=== PATIENT | female | born 1970 | race Caucasian/White ===

== ENCOUNTER → 2016-05-02 | Outpatient (CLI) | payer OTHER ==
--- NOTE | 2016-05-02 16:45 | US ---
EXAMINATION TYPE: US transvaginal DATE OF EXAM: 05/02/2016 4:32 PM COMPARISON: No previous CLINICAL HISTORY: M92.1 Metrorrhagia. Painful, irregular periods with heavy bleeding x 4 months, grav oleg 4, para 4, history of tubal ligation TECHNIQUE: Transvaginal (TV) only - per Dr. Schulte Date of LMP: 04/09/16 EXAM MEASUREMENTS: Uterus: 9.3 x 4.7 x 5.4 cm Endometrial Stripe: right 1.1cm, left 1.2cm Right Ovary: not seen cm Left Ovary: not seen cm TECHNOLOGIST IMPRESSION: 1. Uterus: Anteverted, possible bicornuate uterus 2. Endometrium: appears to split within fundal portion of uterus with right endometrial stripe measu ring 1.1cm and left endometrial stripe measuring 1.2cm, both measuring wnl for patient's menstrual cy darwin 3. Right Ovary: not seen due to overlying bowel gas 4. Left Ovary: not seen due to overlying bowel gas 5. Bilateral Adnexa: wnl 6. Posterior cul-de-sac: wnl IMPRESSION: NORMAL PELVIC ULTRASOUND. I COULD NOT EXCLUDE A BICORNUATE UTERUS.
== END | disposition home or self-care (01) ==
LOC: RADUSWWP 16:07
PROVIDERS: ATTEND Obstetrics & Gynecology
DX: N92.1 Excessive and frequent menstruation with irregular cycle (principal)
CPT/HCPCS: 76830

== ENCOUNTER 2018-05-27 19:29 | Emergency (ER) | payer OTHER ==
[2018-05-27] MEDS ORDERED: SODIUM CHLORIDE 0.9% 1,000 ML IV STA (20:47)
[2018-05-27] MEDS ORDERED: KETOROLAC 30 MG/ML 1 ML VIAL IVP STA (20:47)
--- NOTE | 2018-05-27 21:05 | XR ---
EXAMINATION TYPE: XR KUB DATE OF EXAM: 05/27/2018 COMPARISON: NONE HISTORY: Abdominal pain TECHNIQUE: 2 views FINDINGS: Bowel gas pattern is normal. There is no sign of intestinal obstruction or pneumoperitoneum . Fecal pattern is normal. There are no pathologic calcifications. Lung bases are clear. IMPRESSION: Nonacute abdomen.
[2018-05-27 21:06] LABS: Basophils % (A) 0 %; Eosinophils # (A) 0.2 k/uL (0-0.7); Eosinophils % (A) 1 %; HCT 41.9 % (34.0-46.0); HGB 13.9 gm/dL (11.4-16.0); Lymphocytes # (A) 2.3 k/uL (1.0-4.8); Lymphocytes % (A) 18 %; MCH 29.8 pg (25.0-35.0); MCHC 33.1 g/dL (31.0-37.0); MCV 90.2 fL (80.0-100.0); Monocytes # (A) 0.8 k/uL (0-1.0); Monocytes % (A) 6 %; Neutrophils # (A) 9.2 k/uL (1.3-7.7); Neutrophils % (A) 73 %; Platelet Count 380 k/uL (150-450); RBC 4.64 m/uL (3.80-5.40); RDW 13.1 % (11.5-15.5); WBC 12.6 k/uL (3.8-10.6)
[2018-05-27 21:13] LABS: ALT 25 U/L (9-52); AST 25 U/L (14-36); Albumin 4.2 g/dL (3.5-5.0); Alkaline Phosphatase 68 U/L (38-126); Anion Gap 8 mmol/L; Blood Urea Nitrogen 14 mg/dL (7-17); Calcium 9.6 mg/dL (8.4-10.2); Carbon Dioxide 29 mmol/L (22-30); Chloride 103 mmol/L (98-107); Glucose 97 mg/dL (74-99); Lipase 114 U/L (23-300); Potassium 4.9 mmol/L (3.5-5.1); Sodium 140 mmol/L (137-145); Total Bilirubin 0.4 mg/dL (0.2-1.3); Total Protein 7.1 g/dL (6.3-8.2)
[2018-05-27 22:16] LABS: Appearance,Urine Clear (Clear); Bilirubin,Urine Negative (Negative); Blood,Urine Negative (Negative); Color,Urine Yellow; Glucose,Urine (UA) Negative (Negative); Ketones,Urine Negative (Negative); Leukocyte Esterase,Urine Negative (Negative); Nitrite,Urine Negative (Negative); PH, Urine 6.5 (5.0-8.0); Protein,Urine Trace (Negative); Specific Gravity,Urine 1.018 (1.001-1.035); Urobilinogen,Urine <2.0 mg/dL (<2.0)
--- NOTE | 2018-05-27 22:22 | ED ---
General Adult HPI - General Chief complaint: Abdominal Pain Stated complaint: Abd pain Time Seen by Provider: 05/27/18 20:33 Source: patient, RN notes reviewed, old records reviewed Mode of arrival: wheelchair Limitations: no limitations - History of Present Illness Initial comments: 47-year-old female patient past medical history of hysterectomy presents to ED with approximately epigastric pain for 3 days. Patient reports that yesterday she experienced some substernal burning which resolved. Patient denies any substernall burning or any chest pain today. Patient denies any shortness of breath.. Patient denies any nausea vomiting or diarrhea. She denies all other complaints. Systemic: Pt denies fatigue, myalgia, fever/chills, rash. Pt denies weakness, night sweats, weight loss. Neuro: Pt denies headache, visual disturbances, syncope or pre-syncope. HEENT: Pt denies ocular discharge or irritation, otalgia, rhinorrhea, pharyng itis or notable lymphadenopathy. Cardiopulmonary: Pt denies chest pain, SOB, heart palpitations, dyspnea on exertion. Abdominal/GI: Pt denies n/v/d. : Pt denies dysuria, burning w/ urination, frequency/urgency. Denies new onset urinary or bowel incontinence. MSK: Pt denies myalgia, loss of strength or function in extremities. Neuro: Pt denies new onset weakness, paresthesias. - Related Data Home Medications Medication Instructions Recorded Confirmed Ibuprofen [Motrin] 800 mg PO TID PRN 05/27/18 05/27/18 Levothyroxine Sodium [Synthroid] 75 mcg PO DAILY 05/27/18 05/27/18 Loratadine [Claritin] 10 mg PO DAILY 05/27/18 05/27/18 Multivitamins, Thera [Multivitamin 1 tab PO DAILY 05/27/18 05/27/18 (formulary)] Sertraline [Zoloft] 50 mg PO DAILY 05/27/18 05/27/18 Triamcinolone 0.025% Cream 1 applic TOPICAL DAILY PRN 05/27/18 05/27/18 [Kenalog 0.025% Cream] Vortioxetine Hydrobromide 20 mg PO HS 05/27/18 05/27/18 [Trintellix] Allergies Allergy/AdvReac Type Severity Reaction Status Date / Time codeine Allergy Anaphylaxis Verified 05/27/18 20:31 morphine Allergy Rash/Hives Verified 05/27/18 20:31 Review of Systems ROS Statement: Those systems with pertinent positive or pertinent negative responses have been documented in the HPI. ROS Other: All systems not noted in ROS Statement are negative. Past Medical History Past Medical History: Seizure Disorder History of Any Multi-Drug Resistant Organisms: None Reported Past Surgical History: Adenoidectomy, Hysterectomy, Tonsillectomy, Tubal Ligation Past Psychological History: No Psychological Hx Reported, Depression Smoking Status: Current every day smoker Past Alcohol Use History: None Reported Past Drug Use History: None Reported General Exam - General Exam Comments Initial Comments: Constitutional: NAD, AOX3, Pt has pleasant affect. HEENT: NC/AT, trachea midline, neck supple, no lymphadenopathy. Posterior pharynx non erythematous, without exudates. External ears appear normal, without discharge. Mucous membranes moist. Eyes PERRLA, EOM intact. There is no scleral icterus. No pallor noted. Cardiopulmonary: RRR, no murmurs, rubs or gallops, no JVD noted. Lungs CTAB in anterior and posterior woods. No peripheral edema. Abdominal exam: Abdomen soft and non-distended. Epigastric region mildly tender to palpation. No right upper quadrant tenderness, Fried sign negative. No ot her areas abdominal tenderness. No guarding or rigidity. Bowel sounds active in LLQ. No hepatosplenomegaly. No ecchymosis Neuro: CN II-XII grossly intact. No nuchal rigidity. MSK: No posterior calf tenderness bilaterally, homans sign negative bilaterally. Posterior tibialis and radial pulse +2 bilaterally. Sensation intact in upper and lower extremities. Full active ROM in upper and lower extremities, 5/5 stregnth. Limitations: no limitations Course Vital Signs 05/27/18 05/27/18 20:03 22:27 Temperature 98.1 F 97 F L Pulse Rate 92 72 Respiratory 18 16 Rate Blood Pressure 119/87 132/70 O2 Sat by Pulse 97 98 Oximetry Medical Decision Making - Medical Decision Making 47-year-old female patient past medical history of hysterectomy presents to ED with approximately epigastric pain for 3 days. Patient reports that yesterday she experienced some substernal burning which resolved. Patient denies any substernall burning or any chest pain today. Patient denies any shortness of breath.. Patient denies any nausea vomiting or diarrhea. She denies all other complaints. Pt VSS, afebrile. Physical exam displayed: Epigastric region m ildly tender to palpation. No right upper quadrant tenderness, Fried sign negative. No other areas abdominal tenderness. No guarding or rigidity. Bowel sounds active in LLQ. No hepatosplenomegaly. No ecchymosis. Laboratory Investigations revealed mild leukocytosis of 12.6. CMP noncompressive. Troponin negative. Lactic acid within normal limits. Lipase within normal limits. UA negative. KUB did not display any acute process. EKG not concerning for acute ischemia. Patient improved without fluids. Repeat abdominal exam displayed decreased abdominal tenderness. Patient to be discharged with close outpatient follow-up with primary care provider. Patient return to ER if descends symptoms develop and worsens anyway. Case discussed with Dr. Marcial. - Lab Data Result diagrams: 05/27/18 20:35 05/27/18 20:35 Lab Results 05/27/18 05/27/18 05/27/18 Range/Units 20:35 20:35 20:35 WBC 12.6 H (3.8-10.6) k/uL RBC 4.64 (3.80-5.40) m/uL Hgb 13.9 (11.4-16.0) gm/dL Hct 41.9 (34.0-46.0) % MCV 90.2 (80.0-100.0) fL MCH 29.8 (25.0-35.0) pg MCHC 33.1 (31.0-37.0) g/dL RDW 13.1 (11.5-15.5) % Plt Count 380 (150-450) k/uL Neutrophils % 73 % Lymphocytes % 18 % Monocytes % 6 % Eosinophils % 1 % Basophils % 0 % Neutrophils # 9.2 H (1.3-7.7) k/uL Lymphocytes # 2.3 (1.0-4.8) k/uL Monocytes # 0.8 (0-1.0) k/uL Eosinophils # 0.2 (0-0.7) k/uL Basophils # 0.0 (0-0.2) k/uL Sodium 140 (137-145) mmol/L Potassium 4.9 (3.5-5.1) mmol/L Chloride 103 (98-107) mmol/L Carbon Dioxide 29 (22-30) mmol/L Anion Gap 8 mmol/L BUN 14 (7-17) mg/dL Creatinine 0.65 (0.52-1.04) mg/dL Est GFR (CKD-EPI)AfAm >90 (>60 ml/min/1.73 sqM) Est GFR (CKD-EPI)NonAf >90 (>60 ml/min/1.73 sqM) Glucose 97 (74-99) mg/dL Plasma Lactic Acid Jonh 1.2 (0.7-2.0) mmol/L Calcium 9.6 (8.4-10.2) mg/dL Total Bilirubin 0.4 (0.2-1.3) mg/dL AST 25 (14-36) U/L ALT 25 (9-52) U/L Alkaline Phosphatase 68 (38-126) U/L Troponin I (0.000-0.034) ng/mL Total Protein 7.1 (6.3-8.2) g/dL Albumin 4.2 (3.5-5.0) g/dL Lipase 114 (23-300) U/L Urine Color Urine Appearance (Clear) Urine pH (5.0-8.0) Ur Specific Jacob (1.001-1.035) Urine Protein (Negative) Urine Glucose (UA) (Negative) Urine Ketones (Negative) Urine Blood (Negative) Urine Nitrite (Negative) Urine Bilirubin (Negative) Urine Urobilinogen (<2.0) mg/dL Ur Leukocyte Esterase (Negative) 05/27/18 05/27/18 Range/Units 20:35 21:56 WBC (3.8-10.6) k/uL RBC (3.80-5.40) m/uL Hgb (11.4-16.0) gm/dL Hct (34.0-46.0) % MCV (80.0-100.0) fL MCH (25.0-35.0) pg MCHC (31.0-37.0) g/dL RDW (11.5-15.5) % Plt Count (150-450) k/uL Neutrophils % % Lymphocytes % % Monocytes % % Eosinophils % % Basophils % % Neutrophils # (1.3-7.7) k/uL Lymphocytes # (1.0-4.8) k/uL Monocytes # (0-1.0) k/uL Eosinophils # (0-0.7) k/uL Basophils # (0-0.2) k/uL Sodium (137-145) mmol/L Potassium (3.5-5.1) mmol/L Chloride (98-107) mmol/L Carbon Dioxide (22-30) mmol/L Anion Gap mmol/L BUN (7-17) mg/dL Creatinine (0.52-1.04) mg/dL Est GFR (CKD-EPI)AfAm (>60 ml/min/1.73 sqM) Est GFR (CKD-EPI)NonAf (>60 ml/min/1.73 sqM) Glucose (74-99) mg/dL Plasma Lactic Acid Jonh (0.7-2.0) mmol/L Calcium (8.4-10.2) mg/dL Total Bilirubin (0.2-1.3) mg/dL AST (14-36) U/L ALT (9-52) U/L Alkaline Phosphatase (38-126) U/L Troponin I <0.012 (0.000-0.034) ng/mL Total Protein (6.3-8.2) g/dL Albumin (3.5-5.0) g/dL Lipase (23-300) U/L Urine Color Yellow Urine Appearance Clear (Clear) Urine pH 6.5 (5.0-8.0) Ur Specific Jacob 1.018 (1.001-1.035) Urine Protein Trace H (Negative) Urine Glucose (UA) Negative (Negative) Urine Ketones Negative (Negative) Urine Blood Negative (Negative) Urine Nitrite Negative (Negative) Urine Bilirubin Negative (Negative) Urine Urobilinogen <2.0 (<2.0) mg/dL Ur Leukocyte Esterase Negative (Negative) - EKG Data -: EKG Interpreted by Me (and dr marcial) EKG Comments: Ventricular rate 78,. Follow 150, QRS 74, QT/QTC 362/412. Normal sinus rhythm, normal EKG. Disposition Clinical Impression: Abdominal pain Disposition: HOME SELF-CARE Condition: Stable Instructions (If sedation given, give patient instructions): Abdominal Pain (ED) Additional Instructions: Patient to adhere to previously discussed treatment plan and will take medication(s) as directed. Patient to follow up with PCP in 1-2 days. Patient to return to ED if symptoms do not improve. Please follow-up with primary care provider in 1-2 days for continued evaluation. Please return to ER if condition worsens in any way. Is patient prescribed a controlled substance at d/c from ED?: No Referrals: Hue Victoria MD [Primary Care Provider] - 1-2 days
[2018-05-27 22:29] VITALS: BP 132/70; PULSE 72; RESP 16; TEMP 97
== END 2018-05-27 22:29 | disposition home or self-care (01) ==
LOC: EC 19:29
DX: D72.829 Elevated white blood cell count, unspecified (principal); F32.9 Major depressive disorder, single episode, unspecified; F17.200 Nicotine dependence, unspecified, uncomplicated; Z98.51 Tubal ligation status; Z90.710 Acquired absence of both cervix and uterus; Z79.890 Hormone replacement therapy; Z79.899 Other long term (current) drug therapy; Z88.5 Allergy status to narcotic agent
CPT/HCPCS: 36415; 93005; 80053; 83605; 83690; 84484; 85025; 81003; 74018; 99284; 96374; 96361; J1885